=== PATIENT | female | born 1965 | race Caucasian/White ===

== ENCOUNTER → 2016-08-27 10:21 | Outpatient (CLI) | payer MEDICAID ==
[2014-06-23 06:20] VITALS: BMI 55.0
[~2016-08-27 10:21] MED LIST: ADVAIR 250/501 DISK INH; ATROVENT 0.06%15 ML NS; BENICAR HCT 40-1 TAB PO; GABAPENTIN100 MG PO; HYDROCODONE-APA1 TAB PO; KLONOPIN1 MG PO; KLOR-CON 1010 MEQ PO; LASIX20 MG PO; PROVENTIL HFA6.7 GM INH; ZOLOFT100 MG PO
== END | disposition home or self-care (01) ==
LOC: D.MAMMO 08-26 15:15
DX: Z12.31 Encounter for screening mammogram for malignant neoplasm of breast (principal)

== ENCOUNTER 2018-08-27 08:00 | Outpatient (CLI) | payer OTHER ==
[2014-06-23 06:20] VITALS: BMI 55.0
== END 2018-08-27 23:59 | disposition home or self-care (01) ==
LOC: D.MAMMO 08:00
PROVIDERS: ATTEND Family Medicine
DX: Z12.31 Encounter for screening mammogram for malignant neoplasm of breast (principal)

== ENCOUNTER 2020-06-25 10:30 | Outpatient (CLI) | payer MEDICARE ==
[2014-06-23 06:20] VITALS: BMI 55.0
== END 2020-06-25 11:30 | disposition home or self-care (01) ==
LOC: D.MAMMO 10:30
PROVIDERS: ATTEND Family Medicine
DX: Z12.31 Encounter for screening mammogram for malignant neoplasm of breast (principal)